=== PATIENT | female | born 1990 | race Caucasian/White ===

== ENCOUNTER 2016-10-15 10:22 | Emergency (ER) | payer MEDICAID ==
[~2016-10-15] VITALS: Ht 170.2 cm; Wt 64.9 kg
[2016-10-15 11:18] LABS: HEMOGLOBIN 12.2 g/dL (11.7-16.4)
[2016-10-15] MEDS ORDERED: OMEP-110 PO (11:28)
[2016-10-15] MEDS ORDERED: FAMOTIDINE 20 MG TABLET ONE (11:30)
[2016-10-15] MEDS ORDERED: FAMOTIDINE 20 MG TABLET PO ONE (11:30)
[2016-10-15] MEDS ORDERED: MAALOX/HYOSCYAMINE/LIDOCAINE 45 ML BOTTLE ONE (11:30)
[2016-10-15] MEDS ORDERED: MAALOX/HYOSCYAMINE/LIDOCAINE 45 ML BOTTLE PO ONE (11:30)
[2016-10-15 11:32] LABS: ASPARTATE AMINO TRANSFERASE 17 U/L (15-37); BLOOD UREA NITROGEN 7 mg/dL (7-18)
[2016-10-15] MEDS ORDERED: ESCI5TAB7 PO (11:37)
[2016-10-15 12:17] VITALS: BP 121/79
== END 2016-10-15 12:20 | disposition home or self-care (01) ==
LOC: ED 11:44
DX: K29.00 Acute gastritis without bleeding (principal); R10.13 Epigastric pain; K21.9 Gastro-esophageal reflux disease without esophagitis; F17.210 Nicotine dependence, cigarettes, uncomplicated
CPT/HCPCS: 36415; 80053; 83690; 85025; 99284

== ENCOUNTER 2016-10-16 12:47 | Emergency (ER) | payer MEDICAID ==
[~2016-10-16] VITALS: Ht 170.2 cm; Wt 63.8 kg
[~2016-10-16 12:47] MED LIST: ESCI5TAB7 PO; OMEP-110 PO
[2016-10-16] MEDS ORDERED: MAALOX/HYOSCYAMINE/LIDOCAINE 45 ML BOTTLE ONE (14:44)
[2016-10-16] MEDS ORDERED: MAALOX/HYOSCYAMINE/LIDOCAINE 45 ML BOTTLE PO ONE (15:00)
[2016-10-16 16:15] VITALS: BP 125/73
== END 2016-10-16 16:18 | disposition home or self-care (01) ==
LOC: ED 15:51
DX: K21.9 Gastro-esophageal reflux disease without esophagitis (principal)
CPT/HCPCS: 74220; 99284

== ENCOUNTER 2016-11-20 12:58 | Emergency (ER) | payer MEDICAID ==
[~2016-11-20] VITALS: Ht 170.2 cm; Wt 62.4 kg
[2016-11-20] MEDS ORDERED: SODIUM CHLORIDE FLUSH 10ML SYR IVF ONE (14:00)
[2016-11-20] MEDS ORDERED: ASPIRIN 81 MG TABLET CHEW PO ONE (14:00)
[2016-11-20 14:20] LABS: BLOOD UREA NITROGEN 10 mg/dL (7-18)
[2016-11-20 14:27] LABS: IS PT STATUS REG ER OR PRE ER? YES
[2016-11-20 16:15] VITALS: BP 129/77
[2016-11-20] MEDS ORDERED: PANT40TA5 PO (16:27)
[2016-11-20] MEDS ORDERED: ESCI10TA10 PO (16:27)
[2016-11-20] MEDS ORDERED: FAMO-79 PO (16:27)
== END 2016-11-20 16:35 | disposition home or self-care (01) ==
LOC: ED 16:29
DX: R07.2 Precordial pain (principal)
CPT/HCPCS: 36415; 71010; 80048; 82040; 83880; 84484; 85025; 85379; 93005